=== PATIENT | male | born 1955 | race Caucasian/White ===

== ENCOUNTER 2021-08-14 00:08 | Inpatient (IN) | payer MEDICARE, BC, SELFPAY ==
[2021-08-14] VITALS (8 sets, daily range): BP systolic 95–144; BP diastolic 74–83; PULSE 77–98; RESP 16–18; TEMP 36.3–37.1; O2SAT 96–100; BMI 30.3
--- NOTE | ~2021-08-14 | CT_ITS ---
EXAMINATION: CT abdomen pelvis w con DATE: 08/14/2021 03:44 INDICATION: Abdominal pain, nausea and vomiting. Unable to keep food down. Recent partial colectomy. TECHNIQUE: Computed tomography (CT) of the abdomen and pelvis was performed with 100 CC Omnipaque 300 intravenous contrast. Automated exposure control and iterative reconstruction technique were employe d. Exam dose: 913.39 mGy-cm total exam DLP. COMPARISON: None. FINDINGS: The lung bases are clear. Heart size is normal. Prominent coronary artery calcification. At rial septal device. No pericardial or pleural effusion. Status post cholecystectomy. The liver, spleen, pancreas, and adrenal glands and kidneys are unremark able. No intraperitoneal or retroperitoneal or pelvic mass lesion or adenopathy. Normal caliber and atherosclerotic calcification of the abdominal aorta. Atherosclerotic calcificatio n at the origins of the renal arteries and superior mesenteric artery. No abdominal aortic aneurysm. There is mild fluid collection in the left paracolic gutter, possibly postoperative There is a suture line at the proximal descending colon. There is surrounding mild patchy soft tissue density of the intraperitoneal fat which may be secondary to recent surgery. No abscess cavity or in traperitoneal free air is detected. There is a small bowel segment which is contiguous with the operative section of the proximal descend ing colon, without intervening fat plane. No small bowel or large bowel dilatation or obstruction is noted. Normal appendix. Fat-containing right inguinal hernia. Midline ventral abdominal wall surgical scarring. Degenerative changes of the thoracic and lumbar spine, including prominent posterior spurring at L3-4 . No suspicious osteolytic or osteoblastic lesions are noted. There are several sclerotic lesions of the left femoral head which are probably bone islands. Differential diagnosis includes osteosclerotic lesions of prostate cancer. IMPRESSION: Postoperative changes following resection of the proximal descending colon, including pa tchy soft tissue infiltration of the adjacent pericolic fat and mild fluid collection in the left par acolic gutter; no abscess cavity or free air detected Status post cholecystectomy Normal appendix Right fat-containing inguinal hernia Reviewed, dictated and finalized at [facility]. Reviewed, dictated and finalized at [facility]. IMPRESSION: Postoperative changes following resection of the proximal descendi ng colon, including patchy soft tissue infiltration of the adjacent pericolic f at and mild fluid collection in the left paracolic gutter; no abscess cavity or free air detected Status post cholecystectomy Normal appendix Right fat-containing inguinal hernia
[2021-08-14 00:52] LABS: Basophils Absolute Auto 0.1 K/mm3 (0.0-0.1); Basophils Percent Auto 0.8 % (0.2-1.2); Eosinophils Percent Auto 0.4 % (0-4.4); Hematocrit 49.6 % (42.0-52.0); Hemoglobin 15.2 g/dL (14.0-18.0); Immature Granulocyte Absolute 0.03 K/mm3 (0.00-0.031); Immature Granulocyte Percent A 0.4 % (0-0.5); Lymphocytes Absolute Auto 1.87 K/mm3 (0.9-3.2); Lymphocytes Percent Auto 24.2 % (18.3-44.2); Mean Corpuscular HGB Conc 30.6 g/dl (32-36); Mean Corpuscular Hemoglobin 28.1 pg (26-34); Mean Corpuscular Volume 91.9 fl (80-100); Monocytes Absolute Auto 0.7 K/mm3 (0.1-0.6); Monocytes Percent Auto 9.6 % (2.6-8.5); Neutrophils Percent Auto 64.6 % (45.5-73.1); Platelet Count Result 170 k/mm3 (150-375); Red Cell Distribution Width 13.4 % (11.5-14.5); White Blood Count 7.7 K/mm3 (4.5-10.0)
[2021-08-14 01:02] LABS: Alanine Aminotransferase 55 U/L (6-50); Albumin Level 4.8 g/dL (3.5-5.1); Alkaline Phosphatase 59 U/L (38-126); Anion Gap 13 mmol/L (8-16); Aspartate Amino Transferase 62 U/L (17-59); Bilirubin,Total 1.3 mg/dL (0.2-1.3); Blood Urea Nitrogen 17 mg/dL (9-20); Calcium 9.2 mg/dL (8.4-10.2); Carbon Dioxide 24 mmol/L (22-30); Chloride 99 mmol/L (98-107); Estimated CRCL calculation 51 ml/min; Estimated Glomerular Filt Rate 43; Glucose 137 mg/dL (65-110); Lipase 250 U/L (23-300); Potassium 4.2 mmol/L (3.4-5.0); Sodium 136 mmol/L (137-145)
[2021-08-14 01:13] LABS: Appearance Urine Slightly Cloudy (Clear); Bilirubin Urine 2+ (Negative); Blood Urine 1+ (Negative); Glucose Urine UA Negative (Negative); Ketones Urine 2+ mg/dL (Negative); Leukocyte Esterase Ur Negative LEU/UL (Negative); Nitrate Urine Negative (Negative); Protein Urine 2+ mg/dL (Negative); Specific Grav Ur >= 1.030 (1.001-1.035); Urobilinogen Urine 0.2 mg/dL (<2.0); pH Urine 5.5 (5.0-9.0)
[2021-08-14 01:15] LABS: Add Urine Microscopic? YES; Color Urine Dark Yellow (Yellow)
--- NOTE | 2021-08-14 02:46 | ED.NAVMDI ---
HPI - Nausea/Vomiting/Diarrhea General Chief complaint: Nausea/Vomiting/Diarrhea <Matt Valdez APRN - Last Filed: 08/14/21 03:40> Stated complaint: N/V x2 weeks, stomach abcess <Matt Valdez APRN - Last Filed: 08/14/21 03:40> Time Seen by Provider: 08/14/21 02:32 <Matt Valdez APRN - Last Filed: 08/14/21 03:40> History of Present Illness HPI Narrative: 66-year-old male presents to the emergency room for evaluation of a nausea vomiting for 3 days. Denies any abdominal pain. Denies fever. Patient states about a month ago he had a routine colonoscopy which showed polyps and a large mass. Patient was referred to general surgeon at that time to have the mass removed along with 4 inches of his large intestine. Patient completed stay at a rehab facility for approximately 2 weeks. Patient states about 3 days ago he started to develop nausea and vomiting and was unable to keep any fluids down. Patient's PCP referred him to [facility] for hospital admission due to his ongoing nausea and recent weight loss of over 40 pounds. During his ER course at [facility], patient was given fluids and reportedly had a CT scan that showed a gastric abscess. Patient was given 1 dose of IV antibiotics at the ER patient. Patient was told he was going to be admitted, and refused the hospital admission leaving the [facility] ER AMA. <Matt Valdez APRN - Last Filed: 08/14/21 03:40> Related Data Home medications: Home Medications Medication Instructions Recorded Confirmed Eliquis 5 mg PO BID 07/19/21 08/14/21 levothyroxine 50 mcg PO DAILY 07/19/21 08/14/21 lisinopril 20 mg PO DAILY 07/19/21 08/14/21 metformin 500 mg PO BID 07/19/21 08/14/21 metoprolol succinate 100 mg PO DAILY 07/19/21 08/14/21 rosuvastatin 40 mg PO HS 07/19/21 08/14/21 sertraline 50 mg PO DAILY 07/19/21 08/14/21 <Matt Valdez APRN - Last Filed: 08/14/21 03:40> Allergies/Adverse reactions: Allergies Allergy/AdvReac Type Severity Reaction Status Date / Time atorvastatin Allergy Unknown Verified 08/14/21 07:07 niacin Allergy Flushing Verified 08/14/21 07:07 <Matt Valdez APRN - Last Filed: 08/14/21 03:40> Review of Systems Review of Systems: CONSTITUTIONAL: Denies fever, chills, or sweats. EYES: Denies visual changes, redness, or discharge. ENT: Denies rhinorrhea, congestion, sore throat, or otalgia. CARDIOVASCULAR: Denies chest pain, palpitations, or edema. RESPIRATORY: Denies cough or dyspnea. GASTROINTESTINAL: Reports nausea and vomiting GENITOURINARY: Denies dysuria or hematuria. SKIN: Denies rash or itching. MUSCULOSKELETAL: Denies back pain, joint pain, or myalgia. NEUROLOGIC: Denies headache, numbness, dizziness, or weakness. PSYCHIATRIC: Denies anxiety or depression. <Matt Valdez APRN - Last Filed: 08/14/21 03:40> [facility] Past Medical History Medical History: Medical History CHF (congestive heart failure) Chronic anticoagulation Diabetes mellitus GERD (gastroesophageal reflux disease) History of CVA (cerebrovascular accident) Hyperlipidemia Hypertension Hypothyroidism Obstructive sleep apnea <Matt Valdez APRN - Last Filed: 08/14/21 03:40> Surgical History Surgical History: Surgical History Status post colectomy <Matt Valdez APRN - Last Filed: 08/14/21 03:40> Family History Family History: Family History (Updated 08/14/21 @ 07:01 by Luanne Lin RN) Sibling Acute Crohn's disease Pacemaker Father Pacemaker Mother Heart attack <Matt Valdez APRN - Last Filed: 08/14/21 03:40> Social History Social History: Social History Social History: patient is retired and lives in a single-level home alone. Prior to this admission patient was independent. Home equipment includes a
[2021-08-14] MEDS: SODIUM CHLORIDE 0.9% IV 1,000 ML 999 ML IV CONT (03:31)
[2021-08-14] MEDS: diphenhydrAMINE HCl INJ 50 MG/ML VIAL 25 MG IV PUSH (03:31)
[2021-08-14] MEDS: METOCLOPRAMIDE HCL INJ 10 MG/2 ML VIAL IV PUSH (03:31)
[2021-08-14] MEDS: PIPERACILLIN/TAZOBACTAM SOD 4.5 GM in SODIUM CHLORIDE 0.9% IV 100 ML 200 ML IVPB (06:19)
--- NOTE | 2021-08-14 06:45 | ADMGEN ---
This patient, To Aguilar, was admitted to [facility] Surg Room 300-01. Patient/family oriented to hospital policies and general routines including ID bracelet, bed and alarms, visiting hours, pain management, procedures, bathroom and other care routines, personal items, smoking policy, room service/diet, and visiting hours. Information on how to activate the Rapid Response Team has been discussed. Patient/Family are encouraged to report perceived risks to care and to ask questions if they do not understand what they are told or what they should do.
[2021-08-14] MEDS: SODIUM CHLORIDE 0.9% IV 1,000 ML 125 ML IV CONT ×2 (10:23→17:30)
--- NOTE | 2021-08-14 10:52 | PM.CNGS ---
Assessment and Plan Assessment and plan (1) Intra-abdominal fluid collection: Code(s): R18.8 - Other ascites Status: Acute Assessment and Plan: CT scan reviewed with the Radiologist today. There is some fluid along the left paracolic gutter that does not appear to be a well-organized abscess and more likely is either ascites or some fluid related to the recent surgery. He is afebrile and his WBC count is normal. No plans for percutaneous drainage at this time. If he becomes febrile or developed leukocytosis you could consider repeating imaging and possibly trying to have this drained if it became a more well-organized fluid collection. Will allow the patient to try clear liquids this morning and see how he tolerates this. His nausea and vomiting does not seem to be caused by anything surgical. Would recommend to stop the IV antibiotics, and continue medical management for his nausea. Further work-up per the Hospitalist. Thank you for allowing us to see the patient in consultation. (2) Status post colectomy: Code(s): Z90.49 - Acquired absence of other specified parts of digestive tract Status: Acute Assessment and Plan: Patient underwent an attempted laparoscopic, converted to open, left colectomy at [facility] on 07/09/21. Records have been requested. Patient reports being told the pathology was benign. See plan above. Would still recommend the patient follow-up with his surgeon after discharge. (3) Nausea & vomiting: Code(s): R11.2 - Nausea with vomiting, unspecified Status: Acute Assessment and Plan: Will try clear liquids. Does not appear to be related to anything surgical. Further management per Hospitalist. (4) DIEUDONNE (acute kidney injury): Code(s): N17.9 - Acute kidney failure, unspecified Status: Acute Assessment and Plan: Creatinine 1.6 on admission, which appears elevated compared to previous labs. Likely related to poor oral intake/dehydration. Continue IV fluids, management per Hospitalist. (5) Chronic anticoagulation: Code(s): Z79.01 - rn long term care (current) use of anticoagulants Status: Acute Assessment and Plan: Okay to resume Eliquis from our standpoint. No plans for surgical intervention. (6) History of CVA (cerebrovascular accident): Code(s): Z86.73 - Personal history of transient ischemic attack (TIA), and cerebral infarction without residual deficits Status: Acute (7) Atrial fibrillation: Code(s): I48.91 - Unspecified atrial fibrillation Status: Acute (8) CHF (congestive heart failure): Code(s): I50.9 - Heart failure, unspecified Status: Acute (9) Diabetes mellitus: Code(s): E11.9 - Type 2 diabetes mellitus without complications Status: Acute (10) Obstructive sleep apnea: Code(s): G47.33 - Obstructive sleep apnea (adult) (pediatric) Status: Acute (11) Hypertension: Code(s): I10 - Essential (primary) hypertension Status: Acute (12) GERD (gastroesophageal reflux disease): Code(s): K21.9 - Gastro-esophageal reflux disease without esophagitis Status: Acute Additional Plan I have discussed the patient's case and plan of care with Dr. Carlin. History of Present Illness Consult details Consult date: 08/14/21 Reason for consult: other (S/p left colectomy on 07/09/[address] findings of a mild fluid collection in the left paracolic gutter) Requesting physician: Marcus Wilson MD Narrative: This is a 66-year-old male who is status post an attempted laparoscopic, converted to open, left colectomy on 07/09/2021 at [facility], who we have been asked to see due to CT findings of a fluid collection in the left pericolic gutter. The patient reports having a colonoscopy earlier this year with findings of a few benign polyps and a left colon mass, which subsequently led to undergoing a left colectomy by Dr. Her at [facility]
--- NOTE | 2021-08-14 17:19 | PM.IMHP ---
H&P: HPI History of Present Illness Date/Time: 08/14/21 17:19 Chief Complaint: Nausea and vomiting Narrative: 66 year old lady admitted today with CT findings of a mild fluid collection in the left paracolic gutter. Pt is S/p left colectomy in [facility]. Postoperatively pt had tachycardia which was treated with IV adenosine, metoprolol, and Cardizem. Pt [facility] on . Pt hypertension, hyperlipidemia, diabetes mellitus, CHF, ANNETTA, hypothyroidism, right CVA with some cognitive deficits. Pt was DC from [facility] on 07/25. Pt states since then that he has been nauseated and vomiting. Pt had CT abdomen he went to see his PCP and was told to go straight to ED for evaluation. Pt has seen surgery here already see surgery recommendations. Review of Systems Review of Systems: All systems reviewed & are unremarkable except as noted in HPI and below PMFSH Past Medical History Medical History CHF (congestive heart failure) Chronic anticoagulation Following his CVA and repair of the septal defect Diabetes mellitus GERD (gastroesophageal reflux disease) History of CVA (cerebrovascular accident) x2 Hyperlipidemia Hypertension Hypothyroidism Obstructive sleep apnea Surgical History Surgical History History of colonoscopy with polypectomy With findings of benign polyp and a left colon mass, prompting the colon resection History of heart surgery Reportedly an intravascular approach to repair a septal defect after having 2 CVAs. 6-8 years ago at [facility] History of laparoscopic cholecystectomy Status post colectomy Attempted laparoscopic, converted to open, left colectomy on 07/09/2021 at [facility] by Dr. Her Family History Family History Sibling Acute Crohn's disease Pacemaker Father Pacemaker Mother Heart attack Social History Social History Social History: patient is retired and lives in a single-level home alone. 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 [employer] Gender identity (if verbalized by the patient): Male Spiritual care concerns: No Meds Home Medications and Allergies Home Medications Medication Instructions Recorded Confirmed Type Eliquis 5 mg PO BID 07/19/21 08/14/21 History levothyroxine 50 mcg PO DAILY 07/19/21 08/14/21 History lisinopril 20 mg PO DAILY 07/19/21 08/14/21 History metformin 500 mg PO BID 07/19/21 08/14/21 History metoprolol succinate 100 mg PO DAILY 07/19/21 08/14/21 History rosuvastatin 40 mg PO HS 07/19/21 08/14/21 History sertraline 50 mg PO DAILY 07/19/21 08/14/21 History amiodarone [Pacerone] 200 mg PO DAILY@0800 #30 tablet 07/24/21 08/14/21 Rx melatonin 3 mg PO HS PRN #0 tablet 07/24/21 08/14/21 Rx Allergies Allergy/AdvReac Type Severity Reaction Status Date / Time atorvastatin Allergy Unknown Verified 08/14/21 07:07 niacin Allergy Flushing Verified 08/14/21 07:07 Vital Signs Vital Signs - 24 hr 08/14/21 00:25 08/14/21 03:31 08/14/21 04:28 Temperature 36.3 C L Pulse Rate 98 77 92 Respiratory Rate 18 16 18 Blood Pressure 95/74 L 141/78 H 142/78 H Pulse Oximetry 97 98 97 08/14/21 05:34 08/14/21 06:45 08/14/21 14:00 Temperature 36.6 C 36.8 C Pulse Rate 77 88 86 Respiratory Rate 16 18 16 Blood Pressure 138/80 144/79 H 134/83 Pulse Oximetry 98 96 100 Exam Const: General: well developed Nutritional Appearance: well nourished HENMT: Head: normocephalic Eyes: General: appearance normal, both eyes and all related structures Pupils: Equal, round and reactive pupils p
[2021-08-14] MEDS: ROSUVASTATIN 10 MG TABLET 40 MG PO (20:33)
[2021-08-14] MEDS: APIXABAN 5 MG TABLET PO (20:33)
[2021-08-14 22:32] LABS: Glucose Point of Care 121 mg/dl (65-105)
[2021-08-15 02:20] VITALS: PULSE 80; O2SAT 94
[2021-08-15] MEDS: LEVOTHYROXINE SODIUM 50 MCG TABLET PO (05:33)
[2021-08-15 05:50] VITALS: BP 128/65; PULSE 72; RESP 18; TEMP 36.5; O2SAT 99
[2021-08-15] MEDS: SODIUM CHLORIDE 0.9% IV 1,000 ML 75 ML IV CONT ×2 (06:45→20:25)
[2021-08-15 06:56] LABS: Alanine Aminotransferase 37 U/L (6-50); Albumin Level 3.7 g/dL (3.5-5.1); Alkaline Phosphatase 48 U/L (38-126); Anion Gap 10 mmol/L (8-16); Aspartate Amino Transferase 40 U/L (17-59); Bilirubin,Total 0.8 mg/dL (0.2-1.3); Blood Urea Nitrogen 9 mg/dL (9-20); Calcium 8.6 mg/dL (8.4-10.2); Carbon Dioxide 26 mmol/L (22-30); Chloride 101 mmol/L (98-107); Estimated CRCL calculation 73 ml/min; Estimated Glomerular Filt Rate > 60; Glucose 111 mg/dL (65-110); Potassium 3.9 mmol/L (3.4-5.0); Sodium 137 mmol/L (137-145)
[2021-08-15 07:49] LABS: Glucose Point of Care 104 mg/dl (65-105)
[2021-08-15 08:15] VITALS: PULSE 76
[2021-08-15] MEDS: METOPROLOL SUCCINATE EXT REL 100 MG TABCR PO (08:15)
[2021-08-15] MEDS: lisinopriL 20 MG TABLET PO (08:15)
[2021-08-15] MEDS: APIXABAN 5 MG TABLET PO ×2 (08:15→20:25)
[2021-08-15] MEDS: SERTRALINE HCL 50 MG TABLET PO (08:15)
[2021-08-15 11:16] LABS: Glucose Point of Care 151 mg/dl (65-105)
--- NOTE | 2021-08-15 11:44 | PM.PNGS ---
Progress Note: A&P Assessment and Plan (1) Intra-abdominal fluid collection: Code(s): R18.8 - Other ascites Status: Acute Assessment and Plan: No infectious or obstructive symptoms. Nausea has resolved. No surgical needs at this time. Will sign off. (2) Status post colectomy: Code(s): Z90.49 - Acquired absence of other specified parts of digestive tract Status: Acute (3) Nausea & vomiting: Code(s): R11.2 - Nausea with vomiting, unspecified Status: Acute Subjective Subjective Date/Time Seen: 08/15/21 11:44 Interval history: No more nausea/vomiting. No abdominal pain. Exam GI: Inspection: non-distended and scar (well healed) GI Palp: Yes Soft to palpation, No Tenderness to palpation present (GI) and No Guarding due to palpation present (GI) Auscultation: normal bowel sounds Objective Data Vital Signs Vital Signs: Vital Signs - 24 hr 08/14/21 14:00 08/14/21 20:50 08/14/21 21:38 Temperature 36.8 C 37.1 C Pulse Rate 86 79 86 Respiratory Rate 16 18 Blood Pressure 134/83 141/83 H Pulse Oximetry 100 98 97 08/15/21 02:20 08/15/21 05:50 08/15/21 08:15 Temperature 36.5 C Pulse Rate 80 72 76 Respiratory Rate 18 Blood Pressure 128/65 Pulse Oximetry 94 99 Intake/Output Intake/Output: Intake & Output 08/12/21 08/13/21 08/14/21 08/15/21 23:59 23:59 23:59 23:59 Intake Total 3100 1120 Output Total 250 650 Balance 2850 470 Meds/Results Medications: Active Medications Generic Name Dose Route Start Last Admin Trade Name Freq PRN Reason Stop Dose Admin Apixaban 5 mg 08/14/21 21:00 08/15/21 08:15 Apixaban 5 Mg Tablet PO 5 mg Q12HR LIZZIE Administration Dextrose 12.5 gm 08/14/21 17:38 Dextrose 50% 25 Gm/50 Ml Syringe IV PUSH PRN PRN Hypoglycemia Protocol Glucagon 1 mg 08/14/21 17:38 Glucagon For Inj 1 Mg Vial IM PRN PRN Hypoglycemia Protocol Glucose 15 gm 08/14/21 17:38 Glucose Oral Gel 15 Gm Of Glucse In 37.5 Gm Tube PO PRN PRN Hypoglycemia Protocol Hydromorphone HCl 0.5 mg 08/14/21 04:46 Hydromorphone Hcl Inj (*Crx) 1 Mg/Ml Syr IV PUSH Q4H PRN Pain Rated 7-10 Sodium Chloride 1,000 mls @ 75 mls/hr 08/14/21 04:50 08/15/21 06:45 Normal Saline Iv IV CONT 75 mls/hr .[id number] LIZZIE Administration Dextrose 1,000 mls @ 100 mls/hr 08/14/21 17:38 Dextrose 5% 1,000 Ml IVPB PRN PRN Hypoglycemia Protocol Insulin Aspart 2 - 5 units 08/14/21 17:00 08/15/21 11:19 Insulin Aspart (*Bkc) 100 Units/Ml SUB-Q Not Given TIDWM LIZZIE Protocol Levothyroxine Sodium 50 mcg 08/15/21 06:30 08/15/21 05:33 Levothyroxine Sodium 50 Mcg Tablet PO 50 mcg DAILY@0630 LIZZIE Administration Lisinopril 20 mg 08/15/21 09:00 08/15/21 08:15 Lisinopril 20 Mg Tablet PO 20 mg DAILY LIZZIE Administration Melatonin 3 mg 08/14/21 17:36 Melatonin 3 Mg Tablet PO HS PRN Insomnia Metoprolol Succinate 100 mg 08/15/21 09:00 08/15/21 08:15 Metoprolol Succinate Ext Rel 100 Mg Tabcr PO 100 mg DAILY LIZZIE Administration Ondansetron HCl 4 mg 08/14/21 04:46 Ondansetron Inj 4 Mg/2 Ml Vial IV PUSH Q4H PRN Nausea Rosuvastatin Calcium 40 mg 08/14/21 21:00 08/14/21 20:33 Rosuvastatin 10 Mg Tablet PO 40 mg HS LIZZIE Administration Sertraline HCl 50 mg 08/15/21 09:00 08/15/21 08:15 Sertraline Hcl 50 Mg Tablet PO 50 mg DAILY LIZZIE Administration Radiology Results: ITS Impressions Abdomen/Pelvis CT 08/14/21 07:07 IMPRESSION: Postoperative changes following resection of the proximal descending colon, including patchy soft tissue infiltration of the adjacent pericolic fat and mild fluid collection in the left paracolic gutter; no abscess cavity or free air detected Status post cholecystectomy Normal appendix Right fat-containing inguinal hernia Labs Labs: Laboratory Res
--- NOTE | 2021-08-15 12:41 | PM.IMPN ---
Progress Note: A&P Assessment and Plan (1) DIEUDONNE (acute kidney injury): Code(s): N17.9 - Acute kidney failure, unspecified Status: Acute Assessment and Plan: Creat is 1.1 improved, pt was on iv fluids. Can dc fluids (2) Nausea & vomiting: Code(s): R11.2 - Nausea with vomiting, unspecified Status: Acute Assessment and Plan: Pt to start on zofran and clears and iv fluids, Can dc iv fluids Advance diet and hopefully DC soon in 1-2 days time (3) Intra-abdominal fluid collection: Code(s): R18.8 - Other ascites Status: Acute Assessment and Plan: CT scan reviewed with the Radiologist today. There is some fluid along the left paracolic gutter that does not appear to be a well-organized abscess and more likely is either ascites or some fluid related to the recent surgery. No need for drainage at this time. (4) Depression: Code(s): F32.A - Depression, unspecified Status: Chronic Assessment and Plan: Chronic and stable (5) Atrial fibrillation: Code(s): I48.91 - Unspecified atrial fibrillation Status: Acute Assessment and Plan: Pt is on amiodarone possible cause of nausea and vomiting. Amiodarone on hold (6) Status post colectomy: Code(s): Z90.49 - Acquired absence of other specified parts of digestive tract Status: Acute Assessment and Plan: See details above, pt refusing to go back to [facility]. (7) GERD (gastroesophageal reflux disease): Code(s): K21.9 - Gastro-esophageal reflux disease without esophagitis Status: Acute (8) Hypothyroidism: Code(s): E03.9 - Hypothyroidism, unspecified Status: Acute Assessment and Plan: On levothyroxine (9) Obstructive sleep apnea: Code(s): G47.33 - Obstructive sleep apnea (adult) (pediatric) Status: Acute Assessment and Plan: Pt uses CPAP DIABETES SSI Accuchecks, hbaic is 7.7 HTN Continue Bp medications CHF Continue to monitor Transaminases Watch LFTs Subjective Date/time seen: 08/15/21 12:41 Interval history: 66 year old male admitted today with CT findings of a mild fluid collection in the left paracolic gutter. Pt is S/p left colectomy in [facility]. Surgery has signed off Pt doing better continue advancing diet Review of Systems Review of Systems: All systems reviewed & are unremarkable except as noted in HPI and below Exam Const: General: well developed Chest: Chest palpation & inspection: normal inspection of the chest Resp: Effort & Inspection: normal respiratory effort Auscultation: clear to auscultation bilaterally Cardio: Jugular venous distension: no JVD Heart sounds: S1 normal heart sound present and S2 normal heart sound present GI: Inspection: other (midline incision large sp colectomy clean wound ) Auscultation: normal bowel sounds Skin: General skin exam: normal color and dry skin Neuro: Cranial nerves: Yes CN's II-XII intact bilaterally and Yes Equal, round and reactive pupils present Cognition (Neuro): normal cognition Speech: normal speech Motor exam (neuro): 5/5 motor strength present throughout Extrem: General: normal to inspection Psych: Appearance: grossly normal Mental Status: mental status grossly normal Objective Data Vital Signs Vital Signs: Vital Signs - 24 hr 08/14/21 14:00 08/14/21 20:50 08/14/21 21:38 Temperature 36.8 C 37.1 C Pulse Rate 86 79 86 Respiratory Rate 16 18 Blood Pressure 134/83 141/83 H Pulse Oximetry 100 98 97 08/15/21 02:20 08/15/21 05:50 08/15/21 08:15 Temperature 36.5 C Pulse Rate 80 72 76 Respiratory Rate 18 Blood Pressure 128/65 Pulse Oximetry 94 99 Intake/Output Intake/Output: Intake & Output 08/12/21 08/13/21 08/14/21 08/15/21 23:59 23:59 23:59 23:59 Intake Total 3100 1120 Output Total 250 650 Balance 2850 470 Meds/Results Medications: Active Medications Generic
[2021-08-15 13:10] LABS: EDCOVIDSCREEN Negative (Negative)
[2021-08-15 14:00] VITALS: BP 139/86; PULSE 75; RESP 16; TEMP 36.6; O2SAT 100
[2021-08-15 16:45] LABS: Glucose Point of Care 129 mg/dl (65-105)
[2021-08-15] MEDS: ROSUVASTATIN 10 MG TABLET 40 MG PO (20:25)
[2021-08-15 22:00] VITALS: BP 124/76; PULSE 63; RESP 16; TEMP 37.1; O2SAT 99
[2021-08-15 23:44] LABS: Glucose Point of Care 116 mg/dl (65-105)
[2021-08-16 06:00] VITALS: BP 124/74; PULSE 59; RESP 16; TEMP 36.9; O2SAT 99
[2021-08-16] MEDS: LEVOTHYROXINE SODIUM 50 MCG TABLET PO (06:51)
[2021-08-16 07:26] LABS: Alanine Aminotransferase 36 U/L (6-50); Albumin Level 3.4 g/dL (3.5-5.1); Alkaline Phosphatase 35 U/L (38-126); Anion Gap 7 mmol/L (8-16); Aspartate Amino Transferase 47 U/L (17-59); Bilirubin,Total 0.8 mg/dL (0.2-1.3); Blood Urea Nitrogen 6 mg/dL (9-20); Carbon Dioxide 25 mmol/L (22-30); Chloride 104 mmol/L (98-107); Estimated CRCL calculation 73 ml/min; Estimated Glomerular Filt Rate > 60; Glucose 99 mg/dL (65-110); Potassium 3.9 mmol/L (3.4-5.0); Sodium 136 mmol/L (137-145)
[2021-08-16 08:27] LABS: Glucose Point of Care 107 mg/dl (65-105)
[2021-08-16 09:09] LABS: Hemoglobin 12.3 g/dL (14.0-18.0); Immature Platelet Fraction Pct 16.1 % (0.9-11.2); Mean Corpuscular HGB Conc 31.5 g/dl (32-36); Mean Corpuscular Hemoglobin 28.8 pg (26-34); Mean Corpuscular Volume 91.3 fl (80-100); Mean Platelet Volume 13.2 fl (7.4-10.4); Platelet Count Result 119 k/mm3 (150-375); Red Blood Count 4.27 M/mm3 (4.6-6.20); Red Cell Distribution Width 13.5 % (11.5-14.5); White Blood Count 4.9 K/mm3 (4.5-10.0)
[2021-08-16 09:44] VITALS: PULSE 62
[2021-08-16] MEDS: METOPROLOL SUCCINATE EXT REL 100 MG TABCR PO (09:44)
[2021-08-16] MEDS: SODIUM CHLORIDE 0.9% IV 1,000 ML 75 ML IV CONT (09:44)
[2021-08-16] MEDS: lisinopriL 20 MG TABLET PO (09:45)
[2021-08-16] MEDS: APIXABAN 5 MG TABLET PO (09:45)
[2021-08-16] MEDS: SERTRALINE HCL 50 MG TABLET PO (09:45)
[2021-08-16 12:01] LABS: Glucose Point of Care 207 mg/dl (65-105)
[2021-08-16 14:00] VITALS: BP 115/63; PULSE 58; RESP 16; TEMP 36.6; O2SAT 96
--- NOTE | 2021-08-16 15:04 | PM.DS ---
DS: Admitting Diagnosis Discharge Date August 16, 2021 Admitting Diagnosis Nausea and vomiting DS: Discharge Diagnosis Discharge Diagnosis (1) DIEUDONNE (acute kidney injury): Code(s): N17.9 - Acute kidney failure, unspecified Status: Acute Assessment and Plan: Creat is 1.1 improved, pt was on iv fluids. Can dc fluids (2) Nausea & vomiting: Code(s): R11.2 - Nausea with vomiting, unspecified Status: Acute Assessment and Plan: Pt to start on zofran and clears and iv fluids, Can dc iv fluids Advance diet and hopefully DC soon in 1-2 days time (3) Intra-abdominal fluid collection: Code(s): R18.8 - Other ascites Status: Acute Assessment and Plan: CT scan reviewed with the Radiologist today. There is some fluid along the left paracolic gutter that does not appear to be a well-organized abscess and more likely is either ascites or some fluid related to the recent surgery. No need for drainage at this time. (4) Depression: Code(s): F32.A - Depression, unspecified Status: Chronic Assessment and Plan: Chronic and stable (5) Atrial fibrillation: Code(s): I48.91 - Unspecified atrial fibrillation Status: Acute Assessment and Plan: Pt is on amiodarone possible cause of nausea and vomiting. Amiodarone on hold (6) Status post colectomy: Code(s): Z90.49 - Acquired absence of other specified parts of digestive tract Status: Acute Assessment and Plan: See details above, pt refusing to go back to [facility]. (7) GERD (gastroesophageal reflux disease): Code(s): K21.9 - Gastro-esophageal reflux disease without esophagitis Status: Acute (8) Hypothyroidism: Code(s): E03.9 - Hypothyroidism, unspecified Status: Acute Assessment and Plan: On levothyroxine (9) Obstructive sleep apnea: Code(s): G47.33 - Obstructive sleep apnea (adult) (pediatric) Status: Acute Assessment and Plan: Pt uses CPAP DIABETES SSI Accuchecks, hbaic is 7.7 HTN Continue Bp medications CHF Continue to monitor Transaminases Watch LFTs DS: Summary Hospital Course Reason for hospitalization: Nausea and vomiting Hospital Course: 66-year-old female past medical history significant for heart failure, diabetes, hypertension, hyperlipidemia is presenting with nausea and vomiting status post colectomy earlier in July. She was discharged from [facility] post left colectomy to [facility] on July 18. Patient states that since then she has been nauseated and vomited. Patient noted to have acute kidney injury with a creatinine of 1.6. General surgery was consulted and saw no surgical intervention necessary. Symptoms resolved without intervention other than IV fluids. Creatinine resolved as well. IV fluids discontinued, diet advanced. Of note, patient thinks he might of been started on Zoloft while in rehab and this was when his nausea and vomiting symptoms started. Suspect this is the actual etiology and patient is now adjusted to the Zoloft. Status at Discharge Functional status at discharge: independent ambulation Overall status at discharge: patient is progressing back to baseline Time Spent with Patient Time attestation: Total time spent providing and/or coordinating discharge services: Greater than 30 minutes Time spent: Greater than 30 minutes Exam Const: General: no acute distress HENMT: Mouth: Yes moist mucous membranes Eyes: General: appearance normal, both eyes and all related structures Neck: Neck: no JVD Resp: Auscultation: clear to auscultation bilaterally Cardio: Rate: regular rate Rhythm: regular rhythm GI: Inspection: non-distended GI Palp: Yes Soft to palpation and No Tenderness to palpation present (GI) Psych: Mental Status: mental status grossly normal DS: Data Data Completed and Pending Labs on day of discharge: Labs from last 24 hours
[2021-08-16 17:14] LABS: Glucose Point of Care 98 mg/dl (65-105)
== END 2021-08-16 18:25 | disposition home or self-care (01) | DRG 392 ==
LOC: ANHED 05:25 → ANH3MEDSUR 06:32
PROVIDERS: Emergency Medicine; Family Medicine; Admitting Provider Internal Medicine; Emergency Provider Nurse Practitioner Family; Visit Provider Student in an Organized Health Care Education/Training Program
DX: R11.2 Nausea with vomiting, unspecified (principal); R18.8 Other ascites; N17.9 Acute kidney failure, unspecified; Z20.822 Contact with and (suspected) exposure to COVID-19; Z90.49 Acquired absence of other specified parts of digestive tract; E03.9 Hypothyroidism, unspecified; E11.9 Type 2 diabetes mellitus without complications; F32.A Depression, unspecified; G47.33 Obstructive sleep apnea (adult) (pediatric); K21.9 Gastro-esophageal reflux disease without esophagitis; I48.91 Unspecified atrial fibrillation; I11.0 Hypertensive heart disease with heart failure; I50.9 Heart failure, unspecified; E78.5 Hyperlipidemia, unspecified; R74.01 Elevation of levels of liver transaminase levels; T43.225A Adverse effect of selective serotonin reuptake inhibitors, initial encounter; Z79.01 Long term (current) use of anticoagulants; Z99.89 Dependence on other enabling machines and devices; Z79.84 Long term (current) use of oral hypoglycemic drugs; Z86.73 Personal history of transient ischemic attack (TIA), and cerebral infarction without residual deficits
CPT/HCPCS: 36415; 74177; 80053; 81001; 82948; 83605; 83690; 85025; 85027; 85055; 87426; 96361; 96374; 96375; 99285; A9270; C9803; G0378; J1200; J2543; J2765; J7030; Q9967

== ENCOUNTER 2021-09-04 20:26 | Emergency (ER) | payer MEDICARE, BC, SELFPAY ==
[2021-09-04 20:27] VITALS: BP 101/64; PULSE 106; RESP 18; TEMP 36.3; O2SAT 98
[2021-09-04 22:21] LABS: Basophils Absolute Auto 0.1 K/mm3 (0.0-0.1); Basophils Percent Auto 1.3 % (0.2-1.2); Eosinophils Absolute Auto 0.1 K/mm3 (0-0.3); Eosinophils Percent Auto 0.7 % (0-4.4); Hemoglobin 15.8 g/dL (14.0-18.0); Immature Granulocyte Absolute 0.01 K/mm3 (0.00-0.031); Immature Granulocyte Percent A 0.1 % (0-0.5); Lymphocytes Absolute Auto 1.94 K/mm3 (0.9-3.2); Lymphocytes Percent Auto 27.3 % (18.3-44.2); Mean Corpuscular Hemoglobin 28.1 pg (26-34); Mean Corpuscular Volume 90.7 fl (80-100); Mean Platelet Volume 12.4 fl (7.4-10.4); Monocytes Absolute Auto 0.8 K/mm3 (0.1-0.6); Monocytes Percent Auto 10.5 % (2.6-8.5); Neutrophils Absolute Auto 4.3 K/mm3 (1.3-6.7); Neutrophils Percent Auto 60.1 % (45.5-73.1); Platelet Count Result 206 k/mm3 (150-375); Red Blood Count 5.62 M/mm3 (4.6-6.20); Red Cell Distribution Width 14.2 % (11.5-14.5); White Blood Count 7.1 K/mm3 (4.5-10.0)
[2021-09-04] MEDS: ONDANSETRON INJ 4 MG/2 ML VIAL IV PUSH (22:33)
[2021-09-04] MEDS: SODIUM CHLORIDE 0.9% IV 1,000 ML 999 ML IV CONT (22:33)
[2021-09-04 22:35] LABS: Albumin Level 4.8 g/dL (3.5-5.1); Alkaline Phosphatase 82 U/L (38-126); Anion Gap 13 mmol/L (8-16); Aspartate Amino Transferase 187 U/L (17-59); Bilirubin,Total 1.2 mg/dL (0.2-1.3); Blood Urea Nitrogen 14 mg/dL (9-20); Carbon Dioxide 27 mmol/L (22-30); Chloride 98 mmol/L (98-107); Estimated CRCL calculation 54 ml/min; Estimated Glomerular Filt Rate 55; Glucose 199 mg/dL (65-110); Lipase 158 U/L (23-300); Potassium 3.6 mmol/L (3.4-5.0); Sodium 138 mmol/L (137-145)
[2021-09-04 22:40] LABS: Alanine Aminotransferase 78 U/L (6-50)
--- NOTE | 2021-09-04 23:30 | ED.NAVMDI ---
HPI - Nausea/Vomiting/Diarrhea General Chief complaint: Nausea/Vomiting/Diarrhea Stated complaint: vomiting Time Seen by Provider: 09/04/21 21:48 History of Present Illness HPI Narrative: Patient is a 66-year-old male who presents ER with nausea and vomiting. 2 episodes tonight. Reports he has had this intermittently over the last couple months since having a bowel resection. No history of bowel obstruction. He has had bowel movements without issues today. No abdominal distention. Denies fevers or chills or sweats. No known sick contacts. Occurred after eating Romansh food. Related Data Home Medications Medication Instructions Recorded Confirmed apixaban 5 mg tablet (Eliquis) 5 mg PO BID 07/19/21 08/14/21 levothyroxine 50 mcg tablet 50 mcg PO DAILY 07/19/21 08/14/21 lisinopril 40 mg tablet 10 mg PO DAILY 07/19/21 08/14/21 metformin 500 mg tablet,extended 500 mg PO BID 07/19/21 08/14/21 release 24 hr metoprolol succinate 100 mg 100 mg PO DAILY 07/19/21 08/14/21 tablet,extended release 24 hr rosuvastatin 40 mg tablet 40 mg PO HS 07/19/21 08/14/21 sertraline 50 mg tablet 50 mg PO DAILY 07/19/21 08/14/21 Allergies Allergy/AdvReac Type Severity Reaction Status Date / Time atorvastatin Allergy Unknown Verified 09/04/21 21:40 niacin Allergy Flushing Verified 09/04/21 21:40 Review of Systems Review of Systems: All systems reviewed & are unremarkable except as noted in HPI and below Constitutional: Constitutional: Denies chills, Denies fatigue and Denies fever(s) Cardiovascular: Cardiovascular: Denies chest pain, Denies rapid heart rate and Denies radiating jaw, neck or arm pain Respiratory: Respiratory: Denies cough and Denies dyspnea Gastrointestinal: Gastrointestinal: Denies abdominal pain, Denies bloating, Denies constipation, Denies diarrhea, Reports nausea and Reports vomiting Musculoskeletal: Musculoskeletal: Denies myalgias PMFSH Past Medical History Medical History CHF (congestive heart failure) Chronic anticoagulation Following his CVA and repair of the septal defect Diabetes mellitus GERD (gastroesophageal reflux disease) History of CVA (cerebrovascular accident) x2 Hyperlipidemia Hypertension Hypothyroidism Obstructive sleep apnea Surgical History Surgical History History of colonoscopy with polypectomy With findings of benign polyp and a left colon mass, prompting the colon resection History of heart surgery Reportedly an intravascular approach to repair a septal defect after having 2 CVAs. 6-8 years ago at [facility] History of laparoscopic cholecystectomy Status post colectomy Attempted laparoscopic, converted to open, left colectomy on 07/09/2021 at [facility] by Dr. Her Family History Family History Sibling Acute Crohn's disease Pacemaker Father Pacemaker Mother Heart attack Social History Social History Social History: patient is retired and lives in a single-level home alone. Smoking status: Never smoker Alcohol intake: never Substance use: never Substance use type: does not use Additional occupation/education comments: Retired meat boner Gender identity (if verbalized by the patient): Male Spiritual care concerns: No Exam Narrative: GENERAL: Well-appearing, well-nourished, and in no acute distress. HEAD: Normocephalic, atraumatic. EYES: PERRL and EOMI. ENT: Mucous membranes moist. CHEST: Clear to auscultation. No respiratory distress. HEART: Regular rate and rhythm. Normal peripheral pulses. ABDOMEN: Soft, nontender, nondistended. Well-healing midline abdominal scar. EXTREMITIES: Normal range of motion. No edema. SKIN: Warm, dry, no rash. NEURO: Alert and oriented x3. PSYCH: Normal mood and affect. Course Cours
[2021-09-05 00:09] VITALS: BP 115/71; PULSE 84; RESP 18; O2SAT 94
== END 2021-09-05 00:11 | disposition home or self-care (01) ==
PROVIDERS: Emergency Provider Emergency Medicine
DX: R11.2 Nausea with vomiting, unspecified (principal); E11.9 Type 2 diabetes mellitus without complications; I11.0 Hypertensive heart disease with heart failure; I50.9 Heart failure, unspecified; E78.5 Hyperlipidemia, unspecified; E03.9 Hypothyroidism, unspecified; Z79.01 Long term (current) use of anticoagulants; Z79.84 Long term (current) use of oral hypoglycemic drugs; Z86.73 Personal history of transient ischemic attack (TIA), and cerebral infarction without residual deficits
CPT/HCPCS: 36415; 80053; 83690; 85025; 96361; 96374; 99284; J2405; J7030